=== PATIENT | male | born 1945 | race Caucasian/White ===

== ENCOUNTER 2023-08-20 15:59 | Emergency (ER) | payer BC ==
[~2023-08-20] VITALS: Ht 185.4 cm; Wt 67.6 kg
[2023-08-20 16:09] VITALS: O2SAT 97
[2023-08-20] MEDS ORDERED: HYDR12.55 PO (16:18)
[2023-08-20] MEDS ORDERED: LOSA100T31 PO (16:18)
[2023-08-20] MEDS ORDERED: LEVO100T10 PO (16:18)
[2023-08-20 17:00] VITALS: BP 167/84
[2023-08-20 17:00] LABS: BASOPHILS % (AUTO) 0.5 % (0.0-2.0); EOSINOPHILS # (AUTO) 0.1 K/uL (0.0-0.7); EOSINOPHILS % (AUTO) 1.6 % (0.0-7.0); HEMATOCRIT 40.1 % (36.7-47.1); HEMOGLOBIN 13.8 g/dL (12.5-16.3); LYMPHOCYTES # (AUTO) 2.3 K/uL (0.8-4.8); LYMPHOCYTES % (AUTO) 40.2 % (20.5-51.5); MEAN CORPUSCULAR HEMOGLOBIN 33.5 uug (23.8-33.4); MEAN CORPUSCULAR HGB CONC 34 g/dL (32.5-36.3); MEAN CORPUSCULAR VOLUME 97.9 fL (73.0-96.2); MONOCYTES # (AUTO) 0.6 K/uL (0.1-1.30); NEUTROPHILS # (AUTO) 2.7 K/uL (1.8-8.9); NEUTROPHILS % (AUTO) 46.7 % (38.5-71.5); PLATELET COUNT (AUTO) 184 K/uL (152-348); RED CELL DISTRIBUTION WIDTH 13.8 % (12.1-16.2); WHITE BLOOD COUNT (AUTO) 5.8 K/uL (3.6-10.2)
[2023-08-20] MEDS ORDERED: AMLODIPINE 5 MG TABLET PO ONE (17:00)
[2023-08-20 17:08] LABS: DIFFERENTIAL COMMENT 1
[2023-08-20 17:13] LABS: CARBON DIOXIDE 30 mmol/L (21-32); CHLORIDE 102 mmol/L (98-107); GLUCOSE 94 mg/dL (74-106); POTASSIUM 3.3 mmol/L (3.5-5.1); SODIUM SERUM 140 mmol/L (136-145); UREA NITROGEN, BLOOD 21 mg/dL (7-18)
[2023-08-20 17:15] LABS: *BILIRUBIN,URIN NEGATIVE (NEGATIVE); *CLARITY,URINE CLEAR (CLEAR); *COLOR,URINE YELLOW (YELLOW); *KETONES,URINE NEGATIVE (NEGATIVE); *PROTEIN,URINE NEGATIVE (NEGATIVE); *UROBILINOGEN,URINE 0.2 E.U./dl (NORMAL); LEUKOCYTE ESTERASE ,URINE NEGATIVE (NEGATIVE); NITRITE, URINE NEGATIVE (NEGATIVE); PH,URINE 6.5 (5.0-8.0); UGLUCOSE NEGATIVE (NEGATIVE)
[2023-08-20 17:16] LABS: *BLOOD, URINE NEGATIVE (NEGATIVE)
[2023-08-20 17:28] LABS: NT-PRO BNP 259 pg/mL (0-125)
[2023-08-20] MEDS ORDERED: POTASSIUM BICARBONATE/CIT AC 25 MEQ TABLET.EFF PO ONE (17:30)
[2023-08-20] MEDS ORDERED: POTASSIUM BICARBONATE/CIT AC 25 MEQ TABLET.EFF ONE (18:11)
[2023-08-20] MEDS ORDERED: AMLO-212 PO (18:11)
[2023-08-20] MEDS ORDERED: AMLODIPINE 5 MG TABLET ONE (18:12)
[2023-08-20] MEDS ORDERED: LORA0.5T48 PO (18:14)
== END 2023-08-20 18:32 | disposition home or self-care (01) ==
LOC: ER 15:59
DX: I10 Essential (primary) hypertension (principal); Z98.890 Other specified postprocedural states; Z79.899 Other long term (current) drug therapy
CPT/HCPCS: 36415; 71045; 83735; 84443; 84484; 85025; 93005; A4606; A4663